=== PATIENT | female | born 1985 | race Caucasian/White ===

== ENCOUNTER 2020-04-04 18:07 | Emergency (ER) | payer BC ==
[~2020-04-04 18:07] MED LIST: ACETAMINOPHEN PO; ARTIFICIAL TEAR30 ML OP; BACTRIM DS TAB1 EACH PO; BACTROBAN OINT22 GM EXT; CLARITIN10 MG PO; COLACE 100MG C100 MG PO; DULCOLAX5 MG PO; GABAPENTIN800 MG PO; IBUPROFEN600 MG PO; IBUPROFEN800 MG PO; KEFLEX CAP 500500 MG PO; MOTRIN 100100 MG/5 M PO; NAPROSYN500 MG PO; NEURONTIN800 MG PO; NORCO 7.5-3251 EACH PO; PREDNISONE 20 M20 MG PO; VALTREX1000 MG PO; XANAX0.25 MG PO
== END 2020-04-04 20:22 | disposition home or self-care (01) ==
LOC: ER1 18:07
DX: Z20.822 Contact with and (suspected) exposure to COVID-19 (principal); F17.200 Nicotine dependence, unspecified, uncomplicated
CPT/HCPCS: 99284; U0002

== ENCOUNTER 2021-06-23 11:44 | Emergency (ER) | payer OTHER | END 2021-06-23 13:33 | disposition home or self-care (01) | LOC: ER1 11:44 | DX: K64.9 Unspecified hemorrhoids (principal); F17.210 Nicotine dependence, cigarettes, uncomplicated | CPT/HCPCS: 99283 ==